=== PATIENT | male | born 1990 | race Caucasian/White ===

== ENCOUNTER 2017-01-22 21:18 | Emergency (ER) | payer SELFPAY ==
[2017-01-22 21:30] VITALS: TEMP 96.8
[2017-01-22] MEDS ORDERED: ONDANSETRON ODT 4 MG TAB PO STA (21:46)
--- NOTE | 2017-01-22 21:49 | ED ---
General Adult HPI - General Chief complaint: Nausea/Vomiting/Diarrhea Stated complaint: Poss food poisoning Time Seen by Provider: 01/22/17 21:42 Source: patient, RN notes reviewed Mode of arrival: ambulatory Limitations: no limitations - History of Present Illness Initial comments: Patient is a pleasant 26-year-old male presenting to the emergency Department with nausea and vomiting. ate [place] food for lunch. Following this treatment a nap. Patient woke up with several episodes of nausea vomiting. Patient has also had an episode of loose stools. No abdominal pain. No fever. Patient has had similar symptoms previously with food poisoning. - Related Data Previous Rx's Medication Instructions Recorded Ondansetron Odt [Zofran Odt] 4 mg PO Q8HR PRN #10 tab 01/22/17 Allergies Allergy/AdvReac Type Severity Reaction Status Date / Time No Known Allergies Allergy Verified 01/22/17 21:30 Review of Systems ROS Statement: Those systems with pertinent positive or pertinent negative responses have been documented in the HPI. ROS Other: All systems not noted in ROS Statement are negative. Constitutional: Denies: fever Eyes: Denies: eye pain ENT: Denies: ear pain Respiratory: Denies: cough Cardiovascular: Denies: chest pain Endocrine: Denies: fatigue Gastrointestinal: Reports: nausea, vomiting. Denies: abdominal pain, constipation Genitourinary: Denies: dysuria Musculoskeletal: Denies: back pain Skin: Denies: rash Neurological: Denies: weakness Past Medical History Past Medical History: Asthma History of Any Multi-Drug Resistant Organisms: None Reported Past Surgical History: No Surgical Hx Reported Past Psychological History: ADD/ADHD Smoking Status: Current every day smoker Past Alcohol Use History: Occasional Past Drug Use History: None Reported General Exam Limitations: no limitations General appearance: alert, in no apparent distress Head exam: Present: atraumatic Eye exam: Present: normal appearance, PERRL ENT exam: Present: normal oropharynx Neck exam: Present: normal inspection Respiratory exam: Present: normal lung sounds bilaterally Cardiovascular Exam: Present: regular rate, normal rhythm GI/Abdominal exam: Present: soft, normal bowel sounds. Absent: distended, tenderness, guarding, rebound, rigid, pulsatile mass Extremities exam: Present: normal inspection Neurological exam: Present: alert Psychiatric exam: Present: normal affect, normal mood Skin exam: Absent: rash Course Vital Signs 01/22/17 21:28 Temperature 96.8 F L Pulse Rate 81 Respiratory 18 Rate Blood Pressure 163/70 O2 Sat by Pulse 97 Oximetry Medical Decision Making - Medical Decision Making Patient recommended IV fluids and medications and evaluate blood work. Patient refuses this however is receptive to oral antiemetic. Patient requests work note. Disposition Clinical Impression: Acute vomiting Disposition: HOME SELF-CARE Condition: Stable Instructions: Acute Nausea and Vomiting (ED) Additional Instructions: Please follow-up with primary care physician in the next couple days for recheck. Return for not tolerating fluids, fevers, abdominal pain, uncontrolled diarrhea, worsening symptoms or other concerns. [id number] Imodium if needed for diarrhea. Prescriptions: Ondansetron Odt [Zofran Odt] 4 mg PO Q8HR PRN #10 tab PRN Reason: Nausea Referrals: Isaías Lr MD [Primary Care Provider] - 1-2 days
[2017-01-22 22:15] VITALS: BP 139/82; PULSE 80; RESP 16
== END 2017-01-22 22:14 | disposition home or self-care (01) ==
LOC: EC 21:18
DX: R11.10 Vomiting, unspecified (principal); F17.200 Nicotine dependence, unspecified, uncomplicated
CPT/HCPCS: 99283

== ENCOUNTER 2018-09-18 11:08 | Emergency (ER) | payer BC ==
[2018-09-18 11:25] VITALS: BP 150/87; PULSE 102; RESP 18; TEMP 97.5
--- NOTE | 2018-09-18 11:47 | ED ---
General Adult HPI - General Chief complaint: Extremity Injury, Lower Stated complaint: knee pain Time Seen by Provider: 09/18/18 11:27 Source: patient, RN notes reviewed Mode of arrival: ambulatory Limitations: no limitations - History of Present Illness Initial comments: Patient is a 28-year-old male presented to the emergency room today with a chief complaint of injury to the right knee that occurred yesterday when he was playing [employer]. He does admit that he went for shot came down and felt a pop in the right knee. States it's been worse with ambulation. States feels unstable at a time to go backwards. Patient denies any other complaints or symptoms. Patient denies any recent fever, chills, shortness of breath, chest pain, back pain, abdominal pain, nausea or vomiting, numbness or tingling, dysuria or hematuria, constipation or diarrhea, headaches or visual changes, or any other complaints. - Related Data Home Medications Medication Instructions Recorded Confirmed Ibuprofen [Motrin Ib] 400 mg PO Q6H PRN 09/18/18 09/18/18 Previous Rx's Medication Instructions Recorded Ibuprofen [Motrin] 600 mg PO Q6HR PRN #30 day 09/18/18 Allergies Allergy/AdvReac Type Severity Reaction Status Date / Time No Known Allergies Allergy Verified 09/18/18 11:21 Review of Systems ROS Statement: Those systems with pertinent positive or pertinent negative responses have been documented in the HPI. ROS Other: All systems not noted in ROS Statement are negative. Past Medical History Past Medical History: Asthma History of Any Multi-Drug Resistant Organisms: None Reported Past Surgical History: No Surgical Hx Reported Past Psychological History: ADD/ADHD Smoking Status: Current every day smoker Past Alcohol Use History: Occasional Past Drug Use History: None Reported General Exam - General Exam Comments Initial Comments: General: The patient is awake and alert, in no distress, and does not appear acutely ill. Neck: The neck is supple, there is no tenderness or JVD. Musculoskeletal: Mild swelling to the right knee. Patient shows good range of motion with flexion and extension. Sensations are intact. Pupils 2+. Sensations intact. Neurological: A&O x 3. CN II-XII intact, There are no obvious motor or sensory deficits. Coordination appears grossly intact. Speech is normal. Skin: Skin is warm and dry and no rashes or lesions are noted. Psychiatric: Normal mood and affect. Limitations: no limitations Course Vital Signs 09/18/18 11:23 Temperature 97.5 F L Pulse Rate 102 H Respiratory 18 Rate Blood Pressure 150/87 O2 Sat by Pulse 99 Oximetry Medical Decision Making - Medical Decision Making X-ray reviewed negative for any acute fracture dislocation. Results were discussed with the patient. Patient will be given knee immobilizer as he does not that the knee feels unsteady. Patient is advised follow-up with orthopedics. He is advised to ice elevate the affected area and use ibuprofen for pain. Disposition Clinical Impression: Knee injury Disposition: HOME SELF-CARE Condition: Good Instructions: Knee Pain (ED) Additional Instructions: Please follow-up with orthopedics over the next 2-5 days. Continue to ice elevate the affected areas 4 times daily for 20 minutes at a time. Please use ibuprofen for pain. Please use knee immobilizer up and moving around. Please return to emergency room if the symptoms increase or worsen or for any other concerns. Prescriptions: Ibuprofen [Motrin] 600 mg PO Q6HR PRN #30 day PRN Reason: Pain Is patient prescribed a controlled substance at d/c from ED?: No Referrals: Isaías Lr MD [Primary Care Provider] - 1-2 days Buster Chester MD [STAFF PHYSICIAN] - 1-2 days Time of Disposition: 12:20
--- NOTE | 2018-09-18 12:06 | XR ---
EXAMINATION TYPE: XR knee complete RT DATE OF EXAM: 09/18/2018 COMPARISON: NONE HISTORY: Pain TECHNIQUE: Four views are submitted. FINDINGS: Joint spaces are preserved. Osseous structures are intact. No acute fracture seen. Small amount of fluid in the suprapatellar bursa IMPRESSION: 1. No acute fracture or dislocation. 2. Small amount of fluid in the suprapatellar bursa.
== END 2018-09-18 12:35 | disposition home or self-care (01) ==
LOC: EC 11:08
DX: S89.91XA Unspecified injury of right lower leg, initial encounter (principal); F17.200 Nicotine dependence, unspecified, uncomplicated; X50.9XXA Other and unspecified overexertion or strenuous movements or postures, initial encounter; Y93.67 Activity, basketball; Y92.320 Baseball field as the place of occurrence of the external cause
CPT/HCPCS: 73562; 99283; L1830 ×2

== ENCOUNTER 2019-09-21 23:37 | Emergency (ER) | payer BC ==
[2019-09-21 23:42] VITALS: BP 147/85; PULSE 91; RESP 16; TEMP 97.7
[2019-09-21] MEDS ORDERED: PROPARACAINE 0.5% OPHTH DROPS 15 ML BTL LEFT EYE STA (23:44)
[2019-09-21] MEDS ORDERED: POLYMYXIN B-TRIMETHOPRIM SULF (10,000-1) OPHTH DROPS 10 ML BTL LEFT EYE STA (23:51)
--- NOTE | 2019-09-21 23:52 | ED ---
Eye Problem HPI - General Chief complaint: Eye Problems Stated complaint: Eye Problems Time Seen by Provider: 09/21/19 23:43 Source: patient Mode of arrival: ambulatory Limitations: no limitations - History of Present Illness Initial comments: Ottoniel is a previously healthy 29-year-old male who has 3 daughters at home. He reports that yesterday he noted that his eye was somewhat red and scratchy, he slept during the day today and when he woke to go to work this evening he is I was crusted shut and very red. Patient's concern that he may have pinkeye so he came to the ER for evaluation. None of his daughters at home have symptoms. denies any foreign body sensation in the eye. He denies any recent eye trauma. He denies any pain with range of motion of the eye. He denies any systemic symptoms. - Related Data Home Medications Medication Instructions Recorded Confirmed Ibuprofen [Motrin Ib] 400 mg PO Q6H PRN 09/18/18 09/18/18 Previous Rx's Medication Instructions Recorded Ibuprofen [Motrin] 600 mg PO Q6HR PRN #30 day 09/18/18 Allergies Allergy/AdvReac Type Severity Reaction Status Date / Time mold Allergy Itching Verified 09/21/19 23:42 pollen extracts Allergy Itching Verified 09/21/19 23:42 Review of Systems ROS Statement: Those systems with pertinent positive or pertinent negative responses have been documented in the HPI. ROS Other: All systems not noted in ROS Statement are negative. Past Medical History Past Medical History: Asthma History of Any Multi-Drug Resistant Organisms: None Reported Past Surgical History: No Surgical Hx Reported Past Psychological History: ADD/ADHD Smoking Status: Current every day smoker Past Alcohol Use History: Occasional Past Drug Use History: None Reported General Exam - General Exam Comments Initial Comments: Physical Exam GENERAL: Patient is well-developed and well-nourished. Patient is nontoxic and well-hydrated and is in no distress. HENT: Normocephalic, Atraumatic. EYES: PERRL, EOMI Conjunctival injection of left eye, dried purulent discharge noted on eyelashes PULMONARY: Unlabored respirations. CARDIOVASCULAR: RRR Warm and well perfused extremities ABDOMEN: Non-distended SKIN: No rashes or bruising : Deferred NEUROLOGIC: Alert and oriented Normal speech Normal gait MUSCULOSKELETAL: Moving all extremities with no apparent injury PSYCHIATRIC: No SI/HI Limitations: no limitations Course Vital Signs 09/21/19 23:40 Temperature 97.7 F Pulse Rate 91 Respiratory 16 Rate Blood Pressure 147/85 O2 Sat by Pulse 97 Oximetry Medical Decision Making - Medical Decision Making Was seen and evaluated history was obtained from patient history and physical exam are concerning for bacterial conjunctivitis. Polytrim drops were ordered first dose was given in the emergency department instructions on drops were provided for the patient. The importance of strict hand washing to prevent transmission of this was discussed. All questions pertaining care were answered return parameters discussed patient discharged home in stable condition Disposition Clinical Impression: Bacterial conjunctivitis Disposition: HOME SELF-CARE Condition: Stable Instructions (If sedation given, give patient instructions): Conjunctivitis (ED) Additional Instructions: 2 drops in the left eye every 4 hours while awake. You do not need to wake up to put the drops in her eyes just use them prior to going to bed. As long as yo u have symptoms you are contagious so handwashing is very important. If her daughter's develop any symptoms taken to their scoring machine operator or return to the emergency department immediately. Is patient prescribed a controlled substance at d/c from ED?: No Referrals: Isaías Lr MD [Primary Care Provider] - 1-2 days
== END 2019-09-22 00:14 | disposition home or self-care (01) ==
LOC: EC 23:37
DX: H10.89 Other conjunctivitis (principal); B96.89 Other specified bacterial agents as the cause of diseases classified elsewhere; F17.200 Nicotine dependence, unspecified, uncomplicated; Z91.048 Other nonmedicinal substance allergy status
CPT/HCPCS: 99282

== ENCOUNTER 2022-06-05 19:40 | Emergency (ER) | payer BC, OTHER ==
[2022-06-05 19:51] VITALS: BP 145/93; PULSE 100; RESP 20; TEMP 98.2
--- NOTE | 2022-06-05 20:41 | XR ---
EXAMINATION TYPE: XR ankle complete LT DATE OF EXAM: 06/05/2022 8:31 PM INDICATION: Patient age:Male; 32 years old; Reason for study: pain; COMPARISON: None TECHNIQUE: The frontal, oblique and lateral views of the left ankle. FINDINGS: There is no evidence of acute osseous pathology. The joint spaces are well-preserved without evidenc e of subluxation or dislocation. Kager's fat pad is intact. Soft tissues are within normal limits. No radiopaque foreign bodies are identified. IMPRESSION: 1. No evidence of acute fracture. 2. Subcutaneous swelling around the ankle likely secondary to underlying soft tissue injury.
--- NOTE | 2022-06-05 21:13 | ED ---
Lower Extremity Injury HPI - General Chief Complaint: Extremity Injury, Lower Stated Complaint: Left ankle pain Time Seen by Provider: 06/05/22 20:45 Source: patient Mode of arrival: wheelchair Limitations: no limitations - History of Present Illness Initial Comments: Patient is a 32-year-old male presents the emergency room with complaints of left ankle pain and swelling ongoing since jumping over a fence and landing awkwardly. He reports immediate swelling and hearing some popping. He has previously sprained and broken his other ankle prior. He is complaining pain most significantly with inversion. He denies any numbness numbness, tingling, wounds or injury to other extremities. He has a past medical history significant for asthma. He is not taking any medications on a regular basis however he does report utilizing Tylenol [id number] for pain of his ankle. - Related Data Home Medications Medication Instructions Recorded Confirmed Ibuprofen [Motrin Ib] 400 mg PO Q6H PRN 09/18/18 09/18/18 Previous Rx's Medication Instructions Recorded Ibuprofen [Motrin] 600 mg PO Q6HR PRN #30 day 09/18/18 Allergies Allergy/AdvReac Type Severity Reaction Status Date / Time mold Allergy Itching Verified 06/05/22 19:51 pollen extracts Allergy Itching Verified 06/05/22 19:51 Review of Systems ROS Statement: Those systems with pertinent positive or pertinent negative responses have been documented in the HPI. ROS Other: All systems not noted in ROS Statement are negative. Past Medical History Past Medical History: Asthma History of Any Multi-Drug Resistant Organisms: None Reported Past Surgical History: No Surgical Hx Reported Past Psychological History: ADD/ADHD Smoking Status: Current every day smoker Past Alcohol Use History: Occasional Past Drug Use History: None Reported General Exam Limitations: no limitations Course Vital Signs 06/05/22 19:50 Temperature 98.2 F Pulse Rate 100 Respiratory 20 Rate Blood Pressure 145/93 O2 Sat by Pulse 97 Oximetry Medical Decision Making - Medical Decision Making X-ray of the left ankle completed without any evidence of fracture or dislocation. Soft tissue swelling noted. No indication for further imaging or laboratory studies at this time. Patient reports that pain is mild and will continue to use [id number] Tylenol or ibuprofen as needed for pain. No wounds or other indications for any for antibiotic therapy. Discussed signs and symptoms of spurring and educated patient regarding RICE. Compression wrap applied. Ankle stirrup given to utilize at work. Advised elevation and resting for the next 48 hours and then may return to work. Encouraged orthopedic or PCP follow-up in 7-10 days for further evaluation especially if continued pain and swelling. Case discussed with Dr. Gomez. - Radiology Data Radiology results: report reviewed, image reviewed X-ray left ankle complete. Impression no evidence of acute fracture. Subcutaneous swelling around the ankle likely secondary soft tissue injury. Joint spaces well preserved with out evidence of subluxation or dislocation. Disposition Clinical Impression: Sprain and strain of ankle Disposition: HOME SELF-CARE Condition: Stable Instructions (If sedation given, give patient instructions): Ankle Sprain (ED) Additional Instructions: Continue to utilize Tylenol or ibuprofen [id number] as needed for pain. Rest ankle when able. May be weightbearing as tolerated. Ice use encouraged for 20 minutes at a time every 2-3 hours. Continue to keep joint compressed over the next 48 hours. Elevate when possible. May return to work after 48 hours if symptoms haven't improved and utilize use of ankle stirrup at work. Please follow-up with your primary care provider and orthopedist. Please return to the Emergency Department if symptoms worsen or any other concerns. Is patient prescribed a controlled substance at d/c from ED?: No Referrals: Isaías Lr MD [Primary Care Provider] - 1-2 days Time of Disposition: 21:13
== END 2022-06-05 21:15 | disposition home or self-care (01) ==
LOC: EC 19:40
DX: S93.402A Sprain of unspecified ligament of left ankle, initial encounter (principal); J45.909 Unspecified asthma, uncomplicated; F17.200 Nicotine dependence, unspecified, uncomplicated; W26.8XXA Contact with other sharp object(s), not elsewhere classified, initial encounter; Z91.041 Radiographic dye allergy status; Z91.030 Bee allergy status; Y93.39 Activity, other involving climbing, rappelling and jumping off
CPT/HCPCS: 99283

== ENCOUNTER 2024-11-11 08:23 | Emergency (ER) | payer OTHER ==
[2024-11-11 08:32] VITALS: RESP 20
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
[2024-11-11] MEDS: LIDOCAINE 2%-EPI 1:100,000 20 ML VIAL SQ STA (09:16)
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
[2024-11-11] MEDS: DIPH,PERTUS(ACELL)TETVAC-LF 0.5 ML VIAL IM ONE (09:24)
[2024-11-11 09:52] VITALS: BP 124/80; PULSE 78; TEMP 98
== END 2024-11-11 09:52 | disposition home or self-care (01) ==
LOC: EC 08:23
DX: S01.81XA Laceration without foreign body of other part of head, initial encounter (principal); F17.200 Nicotine dependence, unspecified, uncomplicated; Z23 Encounter for immunization; Z88.8 Allergy status to other drugs, medicaments and biological substances; W22.8XXA Striking against or struck by other objects, initial encounter
CPT/HCPCS: 12011; 70450; 70486; 90471; 90715; 99284